=== PATIENT | male | born 1990 | race Two or more races ===

== ENCOUNTER 2017-04-23 19:04 | Emergency (ER) | payer MEDICAID ==
[~2017-04-23] VITALS: Ht 170.2 cm; Wt 75.3 kg
[2017-04-23 19:39] VITALS: BP 140/82
[2017-04-23] MEDS ORDERED: TETRACAINE HCL 0.5% OPTH(EYE) SOLN 4ML LEFTEYE ONE (21:15)
[2017-04-23] MEDS ORDERED: FLUORESCEIN SOD 1 MG TEST STRIP LEFTEYE ONE (21:15)
== END 2017-04-23 21:50 | disposition home or self-care (01) ==
LOC: ER 19:04
DX: T15.92XA Foreign body on external eye, part unspecified, left eye, initial encounter (principal); H10.9 Unspecified conjunctivitis; X58.XXXA Exposure to other specified factors, initial encounter; Y93.89 Activity, other specified; Y92.89 Other specified places as the place of occurrence of the external cause; Y99.8 Other external cause status

== ENCOUNTER 2017-07-30 05:00 | Emergency (ER) | payer MEDICAID ==
[~2017-07-30] VITALS: Ht 170.2 cm; Wt 70.3 kg
[2017-07-30 05:54] LABS: Urine Bilirubin Negative (Negative); Urine Blood 1+ /uL (Negative); Urine Color Yellow (Yellow); Urine Glucose Normal (Normal); Urine Ketone Negative (Negative); Urine Mucus FEW (None Seen); Urine Nitrite Negative (Negative); Urine RBC <1 /hpf (0 - 3); Urine Urobilinogen Normal (Negative)
[2017-07-30] MEDS ORDERED: cefTRIAXone SOD 1,000 MG VL IM ONE (06:30)
[2017-07-30 07:05] VITALS: BP 133/77
== END 2017-07-30 07:30 | disposition home or self-care (01) ==
LOC: ER 05:00
DX: J02.9 Acute pharyngitis, unspecified (principal)
CPT/HCPCS: 71020; 81001; 96372; 99285; J0696

== ENCOUNTER 2017-08-04 18:04 | Emergency (ER) | payer MEDICAID ==
[~2017-08-04] VITALS: Ht 170.2 cm; Wt 71.2 kg
[2017-08-04 18:21] VITALS: BP 125/80
[2017-08-04] MEDS ORDERED: FLUORESCEIN SOD 1 MG TEST STRIP OP STA (20:45)
[2017-08-04] MEDS ORDERED: OPHTHALMIC IRRIGATION SOLN 30ML OP STA (20:45)
[2017-08-04] MEDS ORDERED: TETRAHYDROZOLINE HCL 0.05% OPTH(EYE)SOL OP STA (20:45)
[2017-08-04] MEDS ORDERED: TETRACAINE HCL 0.5% OPTH(EYE) SOLN 4ML ONE (20:50)
[2017-08-04] MEDS ORDERED: GENTAMICIN OPTH sol 0.3% 5ml EACHEYE ONE (21:30)
== END 2017-08-04 21:46 | disposition home or self-care (01) ==
LOC: ER 18:14
DX: H10.9 Unspecified conjunctivitis (principal); H57.8 Other specified disorders of eye and adnexa

== ENCOUNTER 2020-12-11 21:04 | Emergency (ER) | payer BC, MEDICAID ==
[~2020-12-11] VITALS: Ht 170.2 cm; Wt 81.6 kg
[2020-12-11 22:12] VITALS: BP 151/80
[2020-12-11] MEDS ORDERED: TETRACAINE HCL 0.5% OPTH(EYE) SOLN 4ML EACHEYE ONE (22:30)
[2020-12-11] MEDS ORDERED: FLUORESCEIN SOD 1 MG TEST STRIP OP ONE (22:30)
== END 2020-12-11 23:11 | disposition home or self-care (01) ==
LOC: ER 21:05
DX: S05.01XA Injury of conjunctiva and corneal abrasion without foreign body, right eye, initial encounter (principal); X58.XXXA Exposure to other specified factors, initial encounter; Y93.89 Activity, other specified; Y92.89 Other specified places as the place of occurrence of the external cause; Y99.8 Other external cause status
CPT/HCPCS: 65220; 65222

== ENCOUNTER 2022-08-28 07:36 | Emergency (ER) | payer BC, MEDICAID ==
[~2022-08-28] VITALS: Ht 167.6 cm; Wt 86.3 kg
[2022-08-28 08:04] VITALS: BP 112/55
[2022-08-28] MEDS ORDERED: PRED20TA2 PO (08:45)
== END 2022-08-28 08:59 | disposition home or self-care (01) ==
LOC: ER 07:36
DX: J33.9 Nasal polyp, unspecified (principal)